=== PATIENT | male | born 1960 | race Caucasian/White ===

== ENCOUNTER 2025-03-05 08:12 | Outpatient (CLI) | payer OTHER ==
[2025-03-05 08:41] LABS: ALT (SGPT) 23 U/L (Less than 45); AST (SGOT) 29 U/L (11-34); Albumin 4.6 g/dL (3.1-4.5); Alkaline Phosphatase 82 U/L (40-110); Anion Gap 14 mmol/L (10-20); BUN (Urea Nitrogen) 16 mg/dL (8.4-25.7); Bilirubin, Total 0.7 mg/dL (0.3-1.2); Calc. Creatinine Clearance 0 mL/min (70-130); Calcium 9.4 mg/dL (7.8-10.44); Carbon Dioxide 22 mmol/L (23-31); Cardiac Risk 3.2 (Less than 4.5); Chloride 112 mmol/L (98-107); Cholesterol 116 mg/dl (< 200 Desired); Globulin 2.7 g/dL (2.4-3.5); Glucose 123 mg/dL (80-115); HDL Cholesterol 36 mg/dL (>60 Neg Risk); LDL Cholesterol, Calculated 67 mg/dL; Potassium 4.3 mmol/L (3.5-5.1); Sodium 144 mmol/L (136-145); Triglycerides 66 mg/dL (Less than 150)
[2025-03-05 09:21] LABS: #Basophils 0.1 thou/uL (0.0-0.2); #Eosinophils 0.1 thou/uL (0.0-0.7); #Lymphocytes 1.7 thou/uL (1.20-3.40); #Monocytes 0.5 thou/uL (0.11-0.59); #Neutrophils 4.4 thou/uL (1.40-6.50); %Basophils 1.4 % (0.0-1.0); %Eosinophils 2.0 % (0.0-10.0); %Lymphocytes 24.7 % (21.0-51.0); %Monocytes 7.3 % (0.0-10.0); %Neutrophils 64.6 % (42.0-75.0); Hematocrit 51.2 % (42.0-52.0); Hemoglobin 16.7 g/dL (14.0-18.0); Mean Corpuscular Hemoglobin 30.4 pg (27.0-31.0); Mean Corpuscular Volume 93.1 fl (78.0-98.0); Platelet Count 171 10x3/uL (130-400); Red Blood Cell (RBC) Count 5.50 mill/uL (4.70-6.10); White Blood Cell (WBC) Count 6.9 10x3/uL (4.8-10.8)
[2025-03-05 17:03] LABS: PSA-Asymptomatic (SCREENING) 0.333 ng/mL (0-4.0)
[2025-03-05 18:07] LABS: Free T4 (Free Thyroxine) 0.97 ng/dL (0.70-1.48)
== END 2025-03-05 08:13 | disposition home or self-care (01) ==
LOC: MADLAB 08:12
DX: Z00.00 Encounter for general adult medical examination without abnormal findings (principal); I10 Essential (primary) hypertension; E78.5 Hyperlipidemia, unspecified; R73.03 Prediabetes
CPT/HCPCS: 36415; 80053; 80061; 83036; 84439; 84443; 85025; G0103